=== PATIENT | male | born 1995 | race Caucasian/White ===

== ENCOUNTER 2018-04-18 14:10 | Emergency (ER) | payer OTHER | END 2018-04-18 16:36 | disposition home or self-care (01) | LOC: M ED 14:10 | DX: N50.812 Left testicular pain (principal); N50.3 Cyst of epididymis; Z72.0 Tobacco use; Z88.0 Allergy status to penicillin; Z88.1 Allergy status to other antibiotic agents | CPT/HCPCS: 76870 ==

== ENCOUNTER 2018-06-16 07:41 | Day surgery (SDC) | payer MEDICAID, OTHER ==
[2018-06-16] MEDS: CIPROFLOXACIN 400 MG in APPROPRIATE DILUENT 1 EA IV (07:00)
[2018-06-16] MEDS: LR 1,000 ML IV ×2 (07:00)
[~2018-06-16 07:41] MED LIST: LIDOCAINE 2% INJ 100 MG/5 ML SDV (FOR ANES.) As Ordered; LR 1,000 ML IV; MIDAZOLAM INJ 2 MG/2 ML VIAL (J2250) As Ordered; PROPOFOL 200 MG/20 ML VIAL As Ordered; ROCURONIUM BROMIDE 50 MG/5 ML VIAL As Ordered; dexameTHASONE 4 MG/ML 1ML VIAL (J1100) As Ordered; fentaNYL 250 MCG/5 ML INJECTION (J3010) As Ordered
[2018-06-16] MEDS ORDERED: ONDANSETRON 4MG/2ML VIAL (J2405) As Ordered ×4 (08:45→10:03)
[2018-06-16] MEDS ORDERED: KETOROLAC 60 MG/2 ML VIAL (J1885) As Ordered ×2 (08:54)
[2018-06-16] MEDS: BUPIVACAINE HCL 0.25% 30 ML VIAL As Ordered ×2 (09:30)
[2018-06-16] MEDS: MUPIROCIN 2% OINT 22 GM TUBE As Ordered ×2 (09:44)
[2018-06-16] MEDS: BACITRACIN OINT 30GM As Ordered ×2 (09:45)
[2018-06-16] MEDS ORDERED: PERCOCET 5MG/325MG TAB As Ordered ×2 (10:03)
[2018-06-16] MEDS: PERCOCET 5MG/325MG TAB PO ×2 (10:10)
[2018-06-16] MEDS ORDERED: LR 1,000 ML IV ×2 (10:30)
[2018-06-16] MEDS ORDERED: PERCOCET 5MG/325MG TAB PO ×4 (10:30)
[2018-06-16] MEDS ORDERED: fentaNYL 100 MCG/2 ML INJECTION (J3010) IV ×2 (10:30)
[2018-06-16] MEDS: ONDANSETRON 4MG/2ML VIAL (J2405) IV ×4 (10:35)
== END 2018-06-16 11:15 | disposition home or self-care (01) ==
LOC: M SDC 07:41
DX: Z30.2 Encounter for sterilization (principal); N44.00 Torsion of testis, unspecified; K21.9 Gastro-esophageal reflux disease without esophagitis; Z88.0 Allergy status to penicillin; F41.9 Anxiety disorder, unspecified
CPT/HCPCS: 55250

== ENCOUNTER 2024-04-17 19:56 | Emergency (ER) | payer OTHER ==
[~2024-04-17] VITALS: Ht 170.2 cm; Wt 86.4 kg
[2024-04-17 20:07] VITALS: BP 145/71; TEMP 97.2; O2SAT 100
[2024-04-17 21:21] LABS: BASO % 0.4 % (0.0-1.0); EOS # 0.2 10^3/uL (0.0-0.5); EOS % 2.6 % (0.0-3.0); HEMATOCRIT 42.8 % (42.0-52.0); HEMOGLOBIN 14.8 g/dl (13.5-17.5); LYMPH # 2.9 10^3/uL (1.5-5.0); LYMPH % 34.1 % (24.0-44.0); MEAN CORPUSCULAR HGB CONC 34.6 g/dl (32.0-36.5); MEAN CORPUSCULAR VOLUME 89.7 fl (80.0-96.0); MONO # 0.7 10^3/uL (0.0-0.8); MONO % 8.5 % (2.0-8.0); NEUTROPHILS # 4.5 10^3/uL (1.5-8.5); PLATELET COUNT, AUTOMATED 257 10^3/uL (150-450); RED BLOOD COUNT 4.77 10^6/uL (4.30-6.10); WHITE BLOOD COUNT 8.4 10^3/uL (4.0-10.0)
[2024-04-17 21:47] LABS: CPK CREATINE PHOSPHOKINASE 874 U/L (46-171)
[2024-04-17 21:48] LABS: ALBUMIN 4.3 G/DL (3.2-5.2); ALKALINE PHOSPHATASE 63 U/L (46-116); ALT/SGPT 51 U/L (7.0-40); AST/SGOT 27 U/L (<34); BILIRUBIN,DIRECT 0.1 MG/DL (<0.4); BILIRUBIN,TOTAL 0.3 MG/DL (0.3-1.2); BLOOD UREA NITROGEN 13 MG/DL (9-23); CALCIUM LEVEL 9.2 MG/DL (8.5-10.1); CARBON DIOXIDE LEVEL 25 MMOL/L (20-31); CHLORIDE LEVEL 111 MMOL/L (98-107); CK-MB VALUE MASS 1.1 NG/ML (<3.6); GLOMERULAR FILTRATION RATE > 60.0 (>60); GLUCOSE, FASTING 88 MG/DL (60-100); MB/CK RELATIVE INDEX 0.12 (< OR =4); POTASSIUM SERUM 3.4 MMOL/L (3.5-5.1); SODIUM LEVEL 141 MMOL/L (136-145); TOTAL PROTEIN 6.7 G/DL (5.7-8.2)
[2024-04-17 22:59] LABS: CK-MB VALUE MASS 1.6 NG/ML (<3.6)
[2024-04-17 23:01] LABS: MB/CK RELATIVE INDEX 0.19 (< OR =4)
[2024-04-18 00:09] LABS: Trichomonas vaginalis (AMP) NOT DETECTED (NEGATIVE)
[2024-04-18 00:32] LABS: GC DNA AMPLIFICATION NEGATIVE (NEGATIVE)
== END 2024-04-17 23:30 | disposition left against medical advice (07) ==
LOC: M ED 19:56
DX: Z53.21 Procedure and treatment not carried out due to patient leaving prior to being seen by health care provider (principal)